=== PATIENT | female | born 1980 | race Hispanic/Latino ===

== ENCOUNTER 2017-11-19 11:40 | Emergency (ER) | payer OTHER ==
[2017-11-19 11:48] VITALS: BP 118/62; PULSE 71; RESP 20; TEMP 97.4; O2SAT 96
[2017-11-19] MEDS ORDERED: Naproxen 500 MG TAB PO ONE (12:36)
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
--- NOTE | 2017-11-19 13:21 | RAD ---
PROCEDURE: Left Knee Radiographs. HISTORY: Pain. COMPARISON: None. FINDINGS: BONES: No acute fracture. No lytic or blastic osseous lesion. JOINTS: Normal. No osteoarthritis. JOINT EFFUSION: None. OTHER FINDINGS: None. IMPRESSION: Normal radiographs of the left knee.
[2017-11-19] MEDS ORDERED: Naproxen 500 MG TAB PO SCH (21:00)
== END 2017-11-19 13:24 | disposition home or self-care (01) ==
LOC: H.ER 11:40
DX: S99.912A Unspecified injury of left ankle, initial encounter (principal); V49.40XA Driver injured in collision with unspecified motor vehicles in traffic accident, initial encounter; Z87.891 Personal history of nicotine dependence